=== PATIENT | male | born 1965 | race Caucasian/White ===

== ENCOUNTER 2018-08-04 08:05 | Outpatient (CLI) | payer OTHER | END 2018-08-04 08:07 | disposition home or self-care (01) | LOC: SONOGRAMA 08:05 | DX: R07.0 Pain in throat (principal); E07.89 Other specified disorders of thyroid; R49.8 Other voice and resonance disorders ==

== ENCOUNTER 2019-11-01 07:26 | Outpatient (CLI) | payer OTHER | END 2019-11-01 07:34 | disposition home or self-care (01) | LOC: RAD 07:26 | DX: E03.8 Other specified hypothyroidism (principal); E07.89 Other specified disorders of thyroid; Z13.89 Encounter for screening for other disorder; Z13.220 Encounter for screening for lipoid disorders ==

== ENCOUNTER 2020-11-14 07:45 | Outpatient (CLI) | payer OTHER | END 2020-11-14 07:57 | disposition home or self-care (01) | LOC: MAMO-SONO 07:45 → SONOGRAMA 07:45 | PROVIDERS: ATTEND General Practice | DX: R10.84 Generalized abdominal pain (principal); I10 Essential (primary) hypertension; R73.01 Impaired fasting glucose; E78.49 Other hyperlipidemia; Z13.89 Encounter for screening for other disorder; Z13.220 Encounter for screening for lipoid disorders; Z11.3 Encounter for screening for infections with a predominantly sexual mode of transmission; Z12.5 Encounter for screening for malignant neoplasm of prostate; Z12.11 Encounter for screening for malignant neoplasm of colon ==

== ENCOUNTER 2021-10-24 08:29 | Outpatient (CLI) | payer OTHER | END 2021-10-24 08:49 | disposition home or self-care (01) | LOC: RAD 08:29 | PROVIDERS: ATTEND General Practice | DX: M54.2 Cervicalgia (principal); M54.41 Lumbago with sciatica, right side; E03.9 Hypothyroidism, unspecified; E04.1 Nontoxic single thyroid nodule; R10.9 Unspecified abdominal pain; B18.2 Chronic viral hepatitis C ==

== ENCOUNTER 2022-01-16 13:01 | Outpatient (CLI) | payer OTHER | END 2022-01-16 13:13 | disposition home or self-care (01) | LOC: TOM 13:01 | PROVIDERS: ATTEND General Practice | DX: L03.011 Cellulitis of right finger (principal); R05.9 Cough, unspecified; R53.81 Other malaise; Z20.822 Contact with and (suspected) exposure to COVID-19 ==

== ENCOUNTER 2022-11-05 08:39 | Outpatient (CLI) | payer OTHER | END 2022-11-05 14:42 | disposition home or self-care (01) | LOC: MRI 08:39 | PROVIDERS: ATTEND Internal Medicine Gastroenterology | DX: B19.20 Unspecified viral hepatitis C without hepatic coma (principal); K74.00 Hepatic fibrosis, unspecified | CPT/HCPCS: 74183 ==

== ENCOUNTER 2023-09-17 10:31 | Outpatient (CLI) | payer OTHER | END 2023-09-17 10:37 | disposition home or self-care (01) | LOC: SONOGRAMA 10:31 | PROVIDERS: ATTEND Internal Medicine Gastroenterology | DX: B19.20 Unspecified viral hepatitis C without hepatic coma (principal); E78.5 Hyperlipidemia, unspecified; R10.9 Unspecified abdominal pain; K74.00 Hepatic fibrosis, unspecified ==

== ENCOUNTER 2024-10-04 11:48 | Outpatient (CLI) | payer OTHER | END 2024-10-04 12:03 | disposition home or self-care (01) | LOC: SONOGRAMA 11:48 | PROVIDERS: ATTEND General Practice | DX: R07.0 Pain in throat (principal); R49.8 Other voice and resonance disorders; Z13.89 Encounter for screening for other disorder ==

== ENCOUNTER 2024-11-02 11:59 | Outpatient (CLI) | payer OTHER | END 2024-11-02 12:10 | disposition home or self-care (01) | LOC: SONOGRAMA 11:59 | PROVIDERS: ATTEND General Practice | DX: R31.9 Hematuria, unspecified (principal); R80.9 Proteinuria, unspecified; Z86.19 Personal history of other infectious and parasitic diseases; B00.9 Herpesviral infection, unspecified ==